=== PATIENT | female | born 1995 | race Caucasian/White ===

== ENCOUNTER 2016-03-23 14:40 | Outpatient (CLI) | payer MEDICAID ==
[~2016-03-23] VITALS: Ht 162.6 cm; Wt 66.7 kg
[~2016-03-23 14:40] MED LIST: ACHD5005 PO; ACHYD1T PO; CEPH-507 PO; DCS100C PO; DEPO INJ; FERR27TA; IBP600T1 PO; IBP800T PO; NITR100C44 PO; ONDA-43 PO; PHEN200T27 PO; PRED20TA PO; PREN1TAB39
[2016-03-23] MEDS ORDERED: PREN-53 PO (15:09)
[2016-03-23 15:10] VITALS: BP 111/68
[2016-03-23] MEDS ORDERED: CITRIC ACID/SOB CIT (BICITRA) 30 ML UDC PO ONE (15:45)
[2016-03-23] MEDS ORDERED: FLU TRIvalent (5 YOA+) 2016-17 (AFLURIA) 0.5 ML IM ONE (16:15)
[2016-03-23] MEDS ORDERED: FAMO-119 PO (16:27)
--- NOTE | 2016-03-24 08:38 | Physician Query-Final Dx ---
RODRIGUEZ MULTANI 03/24/16 0838: Clinic Account Progress/Dx Physician Query: Please give diagnosis Date of Service Mar 23, 2016 at 14:40 MALIK DEE MD 03/24/16 1225: Clinic Account Progress/Dx DIAGNOSIS: Diagnosis false labor RODRIGUEZ MULTANI Mar 24, 2016 08:38 MALIK DEE MD Mar 24, 2016 12:25
== END 2016-03-23 16:45 | disposition home or self-care (01) ==
LOC: WSo 14:40 → LDRP 14:40 → WSo 16:45
PROVIDERS: ATTEND Obstetrics & Gynecology
DX: O47.03 False labor before 37 completed weeks of gestation, third trimester (principal); Z3A.33 33 weeks gestation of pregnancy
CPT/HCPCS: 99214

== ENCOUNTER 2016-04-15 13:36 | Observation (INO) | payer MEDICAID ==
[~2016-04-15] VITALS: Ht 160 cm; Wt 67.1 kg
[~2016-04-15 13:36] MED LIST changes: +FAMO-119 PO; +PREN-53 PO
[2016-04-15 13:57] VITALS: BP 116/73
[2016-04-15 14:51] LABS: BILIRUBIN,URINE NEGATIVE (NEGATIVE); KETONES,URINE NEGATIVE (NEGATIVE); LEUKOCYTE ESTERASE ,URINE 3+ (NEGATIVE); NITRITE,URINE NEGATIVE (NEGATIVE); PH,URINE 7 (5-9); PROTEIN,URINE NEGATIVE (NEGATIVE); UROBILINOGEN,URINE NORMAL (NORMAL)
[2016-04-15] MEDS ORDERED: fluCOnazole (DIFLUCAN) 100 MG TAB PO SCH (16:30)
--- NOTE | 2016-04-15 17:06 | History & Physical ---
History and Physical this patient is a 28-year-old A1 white female with an EDC of 2 7 putting her 37 weeks gestation. She was lying on her bed last evening at about 2301 child who was playing on the bed fell on her abdomen. She began having lower abdominal pain that she rated at 8 out of 10 at the time of presentation. She denies rupture membranes or bleeding. She indicates that the pain is somewhat episodic but at times almost constant. She has no history of labor or delivery. She indicates that she feels the baby was moving less after the impact than it had before. She has been observed here now on labor and delivery for several hours and found be having fairly regular contractions and uterine irritability. Allergies are none Occasions are vitamins Past medical history, past surgical history, obstetric history, family history, and social histories are per the antepartum record HEENT exam is normal Neck is supple no lymphadenopathy no thyromegaly Abdomen is gravid soft and minimally tender primarily in the suprapubic pubis and in the bilateral lower quadrants. No guarding rebound or rigidity. Extremities show no clubbing or cyanosis. There is no Homans sign. Pelvic exam is deferred monitor shows persistent but somewhat irregular contractions and very notable uterine irritability. The heart rate pattern is normal with frequent accelerations no decelerations Assessment and plan 34 week with labor/ contractions in a patient that has a pierced I dramatic event of the abdomen. It would be concern for the increased potential for placental abruption. With her contractions there is concern for labor. Plan is to continue observation through the night with continued monitoring. IV access will be established. As there is nothing particularly ominous at the moment she will be allowed to eat.. Primarily bedrest with bathroom privileges. Patient will be reevaluated in the morning labor at 34 weeks gestation Allergies and Home Medications Allergies Uncoded Allergies: BEETS (Adverse Reaction, Mild, RASH, 07/07/12) Home Medications [id number]/Iron Fumarate/FA/Dss 1 Each Tablet 1 EACH PO (Reported) MALIK DEE MD Apr 15, 2016 17:06
[2016-04-15] MEDS ORDERED: CATHETER FLUSH 10 ML SYR IV PRN (17:15)
[2016-04-15] MEDS: D5 LR IV SOLUTION 1,000 ML IV SCH (17:37)
[2016-04-15 17:44] LABS: BASOPHILS % (AUTO) 0 % (0-10); EOSINOPHILS # (AUTO) 0.1 10^3/uL (0.0-0.3); EOSINOPHILS % (AUTO) 1 % (0-10); LYMPHOCYTES # (AUTO) 2.2 X 10^3 (1.0-4.0); LYMPHOCYTES % (AUTO) 18 % (12-44); MEAN CORPUSCULAR HEMOGLOBIN 31 PG (25-34); MEAN CORPUSCULAR HGB CONC 34 G/DL (32-36); MEAN CORPUSCULAR VOLUME 90 FL (80-99); MEAN PLATELET VOLUME 12.2 FL (7.4-10.4); MONOCYTES # (AUTO) 0.7 X 10^3 (0.0-1.0); MONOCYTES % (AUTO) 6 % (0-12); NEUTROPHILS # (AUTO) 8.7 X 10^3 (1.8-7.8); NEUTROPHILS % (AUTO) 75 % (42-75); PLATELET COUNT 134 10^3/uL (130-400); RED BLOOD COUNT 3.35 10^6/uL (4.35-5.85); RED CELL DISTRIBUTION WIDTH 13.9 % (10.0-14.5); WHITE BLOOD COUNT 11.7 10^3/uL (4.3-11.0)
[2016-04-15] MEDS ORDERED: FLU TRIvalent (5 YOA+) 2016-17 (AFLURIA) 0.5 ML IM ONE (18:30)
[2016-04-15 21:00] VITALS: BP 113/71
[2016-04-16 01:00] VITALS: BP 106/62
[2016-04-16 04:11] VITALS: BP 90/52
[2016-04-16] MEDS: D5 LR IV SOLUTION 1,000 ML IV SCH (06:57)
--- NOTE | 2016-04-16 07:50 | Progress Note-Standard ---
Standard Progress Note Progress Notes/Assess & Plan Progress/Assessment & Plan patient is without complaint. She feels only an occasional contraction. She denies rupture membranes or bleeding. Her pain has essentially resolved. He does feel baby moving. She denies chest pain, denies shortness of breath, denies nausea vomiting, denies headache. Vital Signs Date Time Temp Pulse Resp B/P Pulse Ox O2 Delivery O2 Flow Rate FiO2 04/16/16 04:11 97.6 82 18 90/52 Room Air 04/16/16 01:00 97.6 80 18 106/62 Room Air 04/15/16 21:00 98.0 85 18 113/71 Room Air 04/15/16 13:57 97.1 86 18 116/73 Room Air Vital signs are stable. Patient is afebrile. Laboratory Tests Test 04/15/16 14:00 04/15/16 17:35 Range/Units Urine Bacteria TRACE /HPF Urine Bilirubin NEGATIVE NEGATIVE Urine Casts NONE /LPF Urine Clarity CLEAR Urine Color YELLOW Urine Crystals NONE /LPF Urine Culture Indicated NO Urine Glucose (UA) NEGATIVE NEGATIVE Urine Ketones NEGATIVE NEGATIVE Urine Leukocyte Esterase 3+ H NEGATIVE Urine Mucus NEGATIVE /LPF Urine Nitrite NEGATIVE NEGATIVE Urine Protein NEGATIVE NEGATIVE Urine RBC NONE /HPF Urine RBC (Auto) NEGATIVE NEGATIVE Urine Specific Randolph 1.005 L 1.016-1.022 Urine Squamous Epithelial Cells 5-10 /HPF Urine Urobilinogen NORMAL NORMAL MG/DL Urine WBC 2-5 /HPF Urine pH 7 5-9 Basophils # (Auto) 0.0 0.0-0.1 10^3/uL Basophils (%) (Auto) 0 0-10 % Eosinophils # (Auto) 0.1 0.0-0.3 10^3/uL Eosinophils (%) (Auto) 1 0-10 % Hematocrit 30 L 35-52 % Hemoglobin 10.3 L 11.5-16.0 G/DL Lymphocytes # (Auto) 2.2 1.0-4.0 X 10^3 Lymphocytes (%) (Auto) 18 12-44 % Mean Corpuscular Hemoglobin 31 25-34 PG Mean Corpuscular Hemoglobin Concent 34 32-36 G/DL Mean Corpuscular Volume 90 80-99 FL Mean Platelet Volume 12.2 H 7.4-10.4 FL Monocytes # (Auto) 0.7 0.0-1.0 X 10^3 Monocytes (%) (Auto) 6 0-12 % Neutrophils # (Auto) 8.7 H 1.8-7.8 X 10^3 Neutrophils (%) (Auto) 75 42-75 % Platelet Count 134 130-400 10^3/uL Red Blood Count 3.35 L 4.35-5.85 10^6/uL Red Cell Distribution Width 13.9 10.0-14.5 % White Blood Count 11.7 H 4.3-11.0 10^3/uL fundus is firm nontender. Extremities do not show clubbing cyanosis. There is no Homans sign. pelvic exam per nurse shows a cervix that has not had any change since admission Assessment and plan 34 weeks gestation with labor now resolved. Plan is for discharge home with follow-up in clinic Final Diagnosis labor at 34 weeks gestation MALIK DEE MD Apr 16, 2016 7:50 am
[2016-04-16] MEDS ORDERED: FLUC100T6 PO (07:52)
--- NOTE | 2016-04-16 07:53 | Discharge Instructions ---
Discharge Instructions Discharge Medications New, Converted or Re-Newed RX: RX on Chart Patient Instructions Patient Instructions: as directed Return to The Hospital For: as directed Activity & Diet Discharge Diet: No Restrictions Activity as Tolerated: Yes Orders-Post D/C & Referrals return to clinic as scheduled Return promptly for any signs symptoms or indications of labor MALIK DEE MD Apr 16, 2016 7:53 am
[2016-04-16 09:00] VITALS: BP 110/69
[2016-04-16] MEDS ORDERED: D5 LR IV SOLUTION 1,000 ML IV SCH (12:02)
[2016-04-16] MEDS ORDERED: OXYTOCIN/NORMAL SALINE 500 ML IV SCH (12:05)
[2016-04-16] MEDS ORDERED: D5 LR IV SOLUTION 1,000 ML IV ONE (12:13)
[2016-04-16] MEDS ORDERED: metroNIDAZOLE 500MG/100ML IVPB 100 ML IV NR (12:15)
[2016-04-16] MEDS ORDERED: MEPERIDINE (DEMEROL) INJ 100 MG/ML IM PRN (12:15)
[2016-04-16] MEDS ORDERED: oxyCODONE/APAP 10/325MG (PERCOCET 10) TABLET PO PRN (12:15)
[2016-04-16] MEDS ORDERED: MEASLES,MUMPS,RUBELLA 1 EA INJ SC ONE (12:15)
[2016-04-16] MEDS ORDERED: TETANUS,DIPTH,PERTUSS P/F (BOOSTRIX) 0.5 ML VIAL IM ONE (12:15)
[2016-04-16] MEDS ORDERED: KETOROLAC 30 MG/ML VIAL IVP SCH (12:15)
[2016-04-16] MEDS ORDERED: PROMETHAZINE INJ 25 MG/ML (PHENERGAN) AMP IM PRN (12:15)
[2016-04-16] MEDS ORDERED: ceFAZolin 2 GM/50 ML NS 50 ML IV NR (12:30)
[2016-04-16] MEDS ORDERED: DOCUSATE SODIUM 100 MG (COLACE) CAP PO SCH (21:00)
[2016-04-17] MEDS ORDERED: IBUPROFEN 800 MG (MOTRIN) TAB PO SCH (12:15)
== END 2016-04-16 07:52 | disposition home or self-care (01) ==
LOC: WSo 13:36 → LDRP 13:36 → WSo 13:45 → UNDOADMOB 17:06 → LDRP 17:06 → WSo 17:06 → UNDODISOB 04-16 09:30
PROVIDERS: ADMIT Obstetrics & Gynecology; ATTEND Obstetrics & Gynecology
DX: O60.03 Preterm labor without delivery, third trimester (principal); Z3A.34 34 weeks gestation of pregnancy
CPT/HCPCS: 36415; 81000; 85025; 87210; 96360; 96361; 99211; G0378

== ENCOUNTER 2016-04-23 07:09 | Inpatient (IN) | payer MEDICAID ==
[2016-04-23] VITALS (50 sets, daily range): BP systolic 94–142; BP diastolic 51–80
[~2016-04-23] VITALS: Ht 161.3 cm; Wt 66.7 kg
[~2016-04-23 07:09] MED LIST changes: +FLUC100T6 PO
[2016-04-23] MEDS ORDERED: OXYTOCIN/NORMAL SALINE 500 ML IV SCH ×2 (07:47→07:49)
--- NOTE | 2016-04-23 07:54 | History & Physical ---
History and Physical this patient is a 20-year-old white female with an EDC of 2 7 who was seen in clinic yesterday for complaint of pressure and pain and shortness of breath. He has been followed for progressive polyhydramnios since 34 weeks gestation. BILL yesterday was 260. She was having fairly significant uterine elevator bili with occasional contraction. She denies ruptured membranes or bleeding. 's history is also significant for low platelet count. She is admitted now for labor induction secondary to her polyhydramnios. GBS culture done on April 13 of this year was negative. Allergies are none Medications are vitamins S medical history, past surgical history, obstetric history, family history, and social histories are per the antepartum record HEENT exam is normal Neck is supple no lymphadenopathy no thyromegaly Abdomen is gravid soft nontender nondistended. Fundal height is significantly greater than gestational age Extremities show no clubbing cyanosis. There is no Homans sign. pelvic exam reveals a cervix 370 a dilated relatively thick -1 station soft and mid to anterior. This equates to a Hunt score of 7 or 8 assessment and plan term at 37-5/7 weeks' gestation with significant polyhydramnios. Patient is admitted now for induction of labor. Anticipation is for vaginal delivery. 37-5/7 weeks' gestation with severe polyhydramnios Allergies and Home Medications Allergies Uncoded Allergies: BEETS (Adverse Reaction, Mild, RASH, 07/07/12) Home Medications Fluconazole 100 Mg Tablet #3 200 MG PO Q48H Prescribed by: MALIK RUIZ on 04/16/16 0752 [id number]/Iron Fumarate/FA/Dss 1 Each Tablet 1 EACH PO (Reported) MALIK DEE MD Apr 23, 2016 7:54 am
[2016-04-23] MEDS ORDERED: KETOROLAC 30 MG/ML VIAL IV SCH (08:00)
[2016-04-23] MEDS ORDERED: TETANUS,DIPTH,PERTUSS P/F (BOOSTRIX) 0.5 ML VIAL IM ONE (08:00)
[2016-04-23] MEDS ORDERED: MEASLES,MUMPS,RUBELLA 1 EA INJ SC ONE (08:00)
[2016-04-23] MEDS ORDERED: BENZOCAINE/MENTHOL (DERMOPLAST) 56 ML CAN TP PRN (08:00)
[2016-04-23 08:06] LABS: BASOPHILS % (AUTO) 0 % (0-10); EOSINOPHILS # (AUTO) 0.1 10^3/uL (0.0-0.3); EOSINOPHILS % (AUTO) 1 % (0-10); LYMPHOCYTES # (AUTO) 3.1 X 10^3 (1.0-4.0); LYMPHOCYTES % (AUTO) 25 % (12-44); MEAN CORPUSCULAR HEMOGLOBIN 30 PG (25-34); MEAN CORPUSCULAR HGB CONC 34 G/DL (32-36); MEAN CORPUSCULAR VOLUME 89 FL (80-99); MEAN PLATELET VOLUME 12.2 FL (7.4-10.4); MONOCYTES # (AUTO) 1.1 X 10^3 (0.0-1.0); MONOCYTES % (AUTO) 9 % (0-12); NEUTROPHILS # (AUTO) 8.2 X 10^3 (1.8-7.8); NEUTROPHILS % (AUTO) 65 % (42-75); PLATELET COUNT 138 10^3/uL (130-400); RED BLOOD COUNT 3.49 10^6/uL (4.35-5.85); RED CELL DISTRIBUTION WIDTH 13.7 % (10.0-14.5); WHITE BLOOD COUNT 12.6 10^3/uL (4.3-11.0)
[2016-04-23] MEDS: D5 LR IV SOLUTION 1,000 ML IV SCH ×2 (08:30→15:02)
[2016-04-23] MEDS ORDERED: SUFENTA 0.6MCG/ML BUPIVA 0.125 100 ML ONE (09:36)
[2016-04-23] MEDS: EPIDURAL (SUFENTA 0.6MCG/ML BUPIVA 0.125%) 100 ML BAG EPI SCH ×2 (09:36→16:20)
[2016-04-23] MEDS ORDERED: LACTATED RINGERS 1,000 ML IV SCH (10:01)
[2016-04-23] MEDS ORDERED: ONDANSETRON 4 MG/2 ML (SDV) Z0FRAN IV PRN ×2 (10:15→18:15)
[2016-04-23] MEDS ORDERED: METOCLOPRAMIDE INJ 10 MG/2 ML (REGLAN) IV PRN (10:15)
[2016-04-23] MEDS ORDERED: diphenhydrAMINE 50 MG/ML INJ (BENADRYL) IV PRN (10:15)
[2016-04-23] MEDS ORDERED: NALOXONE 0.4 MG/ML 1 ML (NARCAN) VIAL IV PRN ×2 (10:15)
[2016-04-23] MEDS ORDERED: LIDOCAINE/EPI 1%-1:200,000 (XYLOCAINE) 30 ML VIAL ONE (17:03)
[2016-04-23] MEDS ORDERED: FLU TRIvalent (5 YOA+) 2016-17 (AFLURIA) 0.5 ML IM ONE (20:30)
[2016-04-23] MEDS: DOCUSATE SODIUM 100 MG (COLACE) CAP PO SCH (21:40)
[2016-04-24] MEDS: IBUPROFEN 800 MG (MOTRIN) TAB PO SCH ×4 (01:40→18:26)
[2016-04-24 06:45] VITALS: BP 105/64
[2016-04-24] MEDS ORDERED: IBUPROFEN 800 MG (MOTRIN) TAB PO SCH (08:00)
[2016-04-24 08:30] VITALS: BP 107/72
[2016-04-24] MEDS ORDERED: OXYC-465 PO (09:52)
[2016-04-24] MEDS ORDERED: DOCU100C37 PO (09:52)
[2016-04-24] MEDS ORDERED: IBUP-1780 PO (09:52)
--- NOTE | 2016-04-24 09:54 | Discharge Instructions ---
Discharge Instructions Discharge Medications New, Converted or Re-Newed RX: RX on Chart Patient Instructions Patient Instructions: as directed Return to The Hospital For: as directed Activity & Diet Discharge Diet: No Restrictions Activity as Tolerated: No Orders-Post D/C & Referrals Follow Up Appt: Call to make follow up appt. for patient in 4 weeks. Activity Per routine post vaginal delivery instructions. Please call in RX to patient pharmacy. Diet as tolerated Patient may shower or tub bathe as desired. MALIK DEE MD Apr 24, 2016 9:53 am
--- NOTE | 2016-04-24 09:55 | Progress Note-Standard ---
Standard Progress Note Progress Notes/Assess & Plan Progress/Assessment & Plan this patient is without complaint. She is ambulating, voiding, tolerating by mouth well, denies chest pain, denies shortness of breath, denies headache, has good pain control. Vital Signs Date Time Temp Pulse Resp B/P Pulse Ox O2 Delivery O2 Flow Rate FiO2 04/24/16 08:30 97.1 70 20 107/72 Room Air 04/24/16 06:45 97.0 73 18 105/64 Room Air 04/23/16 23:40 96.1 73 18 103/57 Room Air 04/23/16 19:25 72 18 107/60 Room Air 04/23/16 18:48 96.8 67 20 100/59 Room Air 04/23/16 18:20 68 20 109/57 Room Air 04/23/16 18:05 75 20 108/58 Room Air 04/23/16 17:55 98.4 80 18 123/59 Room Air 04/23/16 17:40 78 20 115/55 Room Air 04/23/16 17:15 91 20 115/57 100 Room Air 04/23/16 17:10 92 20 103/57 100 Room Air 04/23/16 17:00 98.0 76 20 120/70 100 Room Air 04/23/16 16:55 76 20 120/75 100 Room Air 04/23/16 16:50 73 20 113/70 100 Room Air 04/23/16 16:45 73 20 113/70 100 Room Air 04/23/16 16:30 73 20 113/70 100 Room Air 04/23/16 16:15 98.3 75 20 108/66 99 Room Air 04/23/16 16:00 72 20 109/70 99 Room Air 04/23/16 15:45 75 20 112/71 100 Room Air 04/23/16 15:30 74 20 108/65 99 Room Air 04/23/16 15:15 77 20 105/63 99 Room Air 04/23/16 15:00 71 20 109/70 98 Room Air 04/23/16 14:44 81 20 113/71 100 Room Air 04/23/16 14:30 97.4 78 20 106/70 97 Room Air 04/23/16 14:15 75 20 106/70 97 Room Air 04/23/16 14:00 130 20 119/79 99 Room Air 04/23/16 13:45 98.0 72 20 107/63 99 Room Air 04/23/16 13:30 74 20 107/63 100 Room Air 04/23/16 13:18 98.3 72 20 99/56 100 Room Air 04/23/16 13:00 98.3 86 18 95/51 98 Room Air 04/23/16 12:40 80 18 94/53 98 Room Air 04/23/16 12:30 85 18 101/61 99 Room Air 04/23/16 12:15 80 18 103/63 100 Room Air 04/23/16 12:00 97.0 78 18 106/74 98 Room Air 04/23/16 11:45 97.0 78 18 106/74 98 Room Air 04/23/16 10:45 86 20 105/69 93 Room Air 04/23/16 10:30 96.6 85 20 108/58 100 Room Air 04/23/16 10:15 103 20 121/68 100 Room Air 04/23/16 10:10 85 20 125/70 100 Room Air 04/23/16 10:05 107 20 107/61 100 Room Air 04/23/16 09:57 96 20 133/76 100 Room Air I & O 04/24/16 07:00 Intake Total 1500 ml Balance 1500 ml Vital signs are stable. Patient afebrile. Fundus is firm below the umbilicus and nontender. Extremities show no clubbing cyanosis. There is no Homans sign. Assessment and plan day number 1 status post term spontaneous vaginal delivery doing well. Plan is for observation and convalescence care today and discharge home tomorrow. If patient elects discharge home today and that will be allowed Final Diagnosis 37-5/7 weeks gestation term spontaneous vaginal delivery MALIK DEE MD Apr 24, 2016 9:55 am
[2016-04-24 11:44] VITALS: BP 98/71
[2016-04-24] MEDS ORDERED: FLU TRIvalent (5 YOA+) 2016-17 (AFLURIA) 0.5 ML IM ONE (15:11)
[2016-04-24] MEDS ORDERED: TETANUS,DIPTH,PERTUSS P/F (BOOSTRIX) 0.5 ML VIAL IM ONE ×2 (15:13→15:30)
[2016-04-24 15:40] VITALS: BP 104/65
--- NOTE | 2016-04-24 16:02 | Anesthesia-Regional Post-Op ---
Regional Patient Condition Mental Status: Alert, Oriented x3 Circulation: Same as Pre-Op Headache: Absent Sensation: Full Recovery Motor Block: Absent Post Op Complications Complications None Follow Up Care/Instructions Patient Instructions None needed. Anesthesia/Patient Condition Patient is doing well, no complaints, stable vital signs, no apparent adverse anesthesia problems. No complications reported per nursing. ASHWINI HERNANDEZ CRNA Apr 24, 2016 16:02
[2016-04-24 20:45] VITALS: BP 105/65
[2016-04-24] MEDS: DOCUSATE SODIUM 100 MG (COLACE) CAP PO SCH (20:45)
[2016-04-24] MEDS: oxyCODONE/APAP 10/325MG (PERCOCET 10) TABLET PO PRN (20:45)
[2016-04-25] MEDS: IBUPROFEN 800 MG (MOTRIN) TAB PO SCH ×3 (00:52→12:02)
[2016-04-25 00:55] VITALS: BP 101/61
[2016-04-25 07:45] VITALS: BP 92/61
[2016-04-25] MEDS: oxyCODONE/APAP 10/325MG (PERCOCET 10) TABLET PO PRN (08:21)
[2016-04-25] MEDS: DOCUSATE SODIUM 100 MG (COLACE) CAP PO SCH (08:22)
--- NOTE | 2016-04-25 09:33 | Progress Note-Standard ---
Standard Progress Note Progress Notes/Assess & Plan Progress/Assessment & Plan this patient is without complaint. She is ambulating, voiding, tolerating by mouth well, denies chest pain, denies shortness of breath, denies headache, has good pain control. Vital Signs Date Time Temp Pulse Resp B/P Pulse Ox O2 Delivery O2 Flow Rate FiO2 04/24/16 08:30 97.1 70 20 107/72 Room Air 04/24/16 06:45 97.0 73 18 105/64 Room Air 04/23/16 23:40 96.1 73 18 103/57 Room Air 04/23/16 19:25 72 18 107/60 Room Air 04/23/16 18:48 96.8 67 20 100/59 Room Air 04/23/16 18:20 68 20 109/57 Room Air 04/23/16 18:05 75 20 108/58 Room Air 04/23/16 17:55 98.4 80 18 123/59 Room Air 04/23/16 17:40 78 20 115/55 Room Air 04/23/16 17:15 91 20 115/57 100 Room Air 04/23/16 17:10 92 20 103/57 100 Room Air 04/23/16 17:00 98.0 76 20 120/70 100 Room Air 04/23/16 16:55 76 20 120/75 100 Room Air 04/23/16 16:50 73 20 113/70 100 Room Air 04/23/16 16:45 73 20 113/70 100 Room Air 04/23/16 16:30 73 20 113/70 100 Room Air 04/23/16 16:15 98.3 75 20 108/66 99 Room Air 04/23/16 16:00 72 20 109/70 99 Room Air 04/23/16 15:45 75 20 112/71 100 Room Air 04/23/16 15:30 74 20 108/65 99 Room Air 04/23/16 15:15 77 20 105/63 99 Room Air 04/23/16 15:00 71 20 109/70 98 Room Air 04/23/16 14:44 81 20 113/71 100 Room Air 04/23/16 14:30 97.4 78 20 106/70 97 Room Air 04/23/16 14:15 75 20 106/70 97 Room Air 04/23/16 14:00 130 20 119/79 99 Room Air 04/23/16 13:45 98.0 72 20 107/63 99 Room Air 04/23/16 13:30 74 20 107/63 100 Room Air 04/23/16 13:18 98.3 72 20 99/56 100 Room Air 04/23/16 13:00 98.3 86 18 95/51 98 Room Air 04/23/16 12:40 80 18 94/53 98 Room Air 04/23/16 12:30 85 18 101/61 99 Room Air 04/23/16 12:15 80 18 103/63 100 Room Air 04/23/16 12:00 97.0 78 18 106/74 98 Room Air 04/23/16 11:45 97.0 78 18 106/74 98 Room Air 04/23/16 10:45 86 20 105/69 93 Room Air 04/23/16 10:30 96.6 85 20 108/58 100 Room Air 04/23/16 10:15 103 20 121/68 100 Room Air 04/23/16 10:10 85 20 125/70 100 Room Air 04/23/16 10:05 107 20 107/61 100 Room Air 04/23/16 09:57 96 20 133/76 100 Room Air I & O 04/24/16 07:00 Intake Total 1500 ml Balance 1500 ml Vital signs are stable. Patient afebrile. Fundus is firm below the umbilicus and nontender. Extremities show no clubbing cyanosis. There is no Homans sign. Assessment and plan day number 1 status post term spontaneous vaginal delivery doing well. Plan is for observation and convalescence care today and discharge home tomorrow. If patient elects discharge home today and that will be allowed April 25, 2016 Patient is without complaint. She is ambulating, voiding, tolerating fairly well, is requesting discharge home. Vital Signs Date Time Temp Pulse Resp B/P Pulse Ox O2 Delivery O2 Flow Rate FiO2 04/25/16 07:45 96.0 75 20 92/61 100 Room Air 04/25/16 00:55 98.1 71 18 101/61 98 Room Air 04/24/16 20:45 98.4 79 18 105/65 99 Room Air 04/24/16 15:40 97.9 76 20 104/65 100 Room Air 04/24/16 11:44 97.4 78 20 98/71 100 Room Air vital signs are stable. Patient is afebrile. Fundus is firm below the umbilicus and nontender. Extremities show clubbing cyanosis. There is no Homans sign. There is some pretibial pitting edema that is normal. Assessment and plan day number 2 status post term spontaneous vaginal delivery at 37 weeks and 5 days. Patient is ready for discharge home. Final Diagnosis 37-5/7 weeks gestation spontaneous vaginal delivery MALIK DEE MD Apr 25, 2016 9:33 am
[2016-04-25 13:05] VITALS: BP 92/61
--- NOTE | 2016-04-26 11:04 | PROCEDURE REPORT ---
PROCEDURE PHYSICIAN: MALIK DEE DATE OF PROCEDURE: 04/23/2016 DATE OF DICTATION: 04/23/2016 DELIVERY NOTE: The patient delivered by term spontaneous vaginal delivery of a viable female with Apgars of 9 and 9 at 1 to 5 minutes respectfully. time was 1726. Weight is pending. The infant was delivered over an intact perineum under epidural analgesia. There was a nuchal cord x1 that was easily released. The infant was bulb suctioned on delivery of the head and again on completion of the delivery. The cord was doubly clamped, father cut the cord and baby was passed to mom's abdomen. Cord bloods were obtained secondary to patient's history of polyhydramnios and 2 repetitive decelerations prior to delivery. Cord blood pH is pending at this time. Cord bloods were obtained as well. The placenta delivered spontaneously Luther. It was normal with a three-vessel cord. These cervix, vagina, rectum and perineum were examined and found intact. Estimated blood loss for the delivery was around 100 mL. Sponge and needle counts were correct on completion of delivery. The patient remained in the LDR for recovery. The baby remained with the mom. Job ID: [id number] Dictated Date: 04/23/2016 17:32:16 Knitted Garment Finisher Date: 04/26/2016 11:01:10 / micheal
== END 2016-04-25 13:05 | disposition home or self-care (01) | DRG 775 ==
LOC: LDRP 07:09
PROVIDERS: ADMIT Obstetrics & Gynecology; ATTEND Obstetrics & Gynecology
PROC: 10E0XZZ Delivery of Products of Conception, External Approach (ICD-10-PCS; principal; 2016-04-23)
PROC: 3E033VJ Introduction of Other Hormone into Peripheral Vein, Percutaneous Approach (ICD-10-PCS; 2016-04-23)
DX: O40.3XX0 Polyhydramnios, third trimester, not applicable or unspecified (principal); O69.81X0 Labor and delivery complicated by cord around neck, without compression, not applicable or unspecified; Z3A.37 37 weeks gestation of pregnancy; Z37.0 Single live birth; Z23 Encounter for immunization
CPT/HCPCS: 36415; 85025; 88307; 90715

== ENCOUNTER 2018-03-30 17:20 | Outpatient (CLI) | payer MEDICAID ==
[~2018-03-30] VITALS: Ht 161.3 cm; Wt 66.2 kg
[~2018-03-30 17:20] MED LIST changes: +DOCU100C37 PO; +IBUP-1780 PO; +OXYC-465 PO
--- NOTE | 2018-03-30 17:20 | NUR ---
HELEN KAMARA presented to unit via ambulation from ED, accompanied by , with c/o N/V. HELEN KAMARA weighed, gowned, voided, and to bed. EFHM and TOCO applied, VS taken. HELEN KAMARA oriented to bed controls, call light, TV, heat, and A/C controls.
[2018-03-30 17:30] VITALS: BP 109/66
--- NOTE | 2018-03-30 17:30 | NUR ---
PT REPORTS NAUSEA/VOMITING ALL DAY, PT NOTES SHE HAS TAKEN ZOFRAN DAILY THROUGHOUT HER AND RAN OUT OF MEDS TODAY, AFTER CALLING THE OFFICE FOR A REFILL, [facility] HADN'T GOTTEN THE PRESCRIPTION FILLED WHICH IS WHAT BROUGHT THE PT TO THE HOSPITAL TODAY. PT REPORTS HER CELL PHONE NOTIFIED HER OF HER PRESCRIPTION BEING READY SOON SHE ARRIVED TO HOSPITAL. PT DENIES CONTRACTIONS, VAGINAL BLEEDING OR LEAKING OF FLUID, INITIAL ASSESSMENT COMPLETED, VSS, PT VERBALIZES UNDERSTANDING OF PLAN OF CARE.
--- NOTE | 2018-03-30 17:35 | NUR ---
DR DEE CALLED NEW ORDERS RECEIVED. REVIEWED PLAN OF CARE WITH PT, PT DENIES QUESTIONS OR CONCERNS.
[2018-03-30] MEDS ORDERED: LACTATED RINGERS 1,000 ML IV SCH (17:45)
[2018-03-30] MEDS ORDERED: ONDANSETRON 4 MG/2 ML (SDV) Z0FRAN IVP ONE (17:45)
[2018-03-30 18:03] VITALS: BP 103/66
[2018-03-30 18:17] VITALS: BP 109/66
--- NOTE | 2018-03-30 18:19 | NUR ---
EFM AND TOCO DISCONTINUED AFTER REACTIVE NST.
--- NOTE | 2018-03-30 19:19 | NUR ---
Arrived in room to meet pt and pt states that she is still cramping. Pt IV complete and pt assisted up to BR to void. Pt denies nausea and is wanting to eat for the first time this day. Pt sitting up and eating at this time.
[2018-03-30 19:57] VITALS: BP 100/56
--- NOTE | 2018-03-30 20:04 | NUR ---
Pt feeling better and ready to go home. IV discontinued and pt educated medication ( zofran). Pt SO present and ambulated to private vehicle with pt.
[2018-03-30 20:11] VITALS: BP 100/56
--- NOTE | 2018-04-03 15:56 | Physician Query-Final Dx ---
ANNETTE LEE 04/03/18 1556: Clinic Account Progress/Dx Physician Query: Please give diagnosis Date of Service Mar 30, 2018 at 17:20 MALIK DEE MD 04/04/18 0756: Clinic Account Progress/Dx DIAGNOSIS: Diagnosis Hyperemesis gravidarum ANNETTE LEE Apr 03, 2018 15:56 MALIK DEE MD Apr 04, 2018 07:56
== END 2018-03-30 20:04 | disposition home or self-care (01) ==
LOC: WSo 17:20 → LDRP 17:20 → WSo 20:04
PROVIDERS: ATTEND Obstetrics & Gynecology
DX: O21.0 Mild hyperemesis gravidarum (principal)
CPT/HCPCS: 96361; 96374; 99213

== ENCOUNTER 2018-05-31 07:00 | Inpatient (IN) | payer MEDICAID ==
[2018-05-31] VITALS (52 sets, daily range): BP systolic 89–132; BP diastolic 51–81
[~2018-05-31] VITALS: Ht 165.1 cm; Wt 70.8 kg
--- NOTE | 2018-05-31 07:10 | NUR ---
HELEN KAMARA presented to unit via AMBULATORY, accompanied by SO, FOR INDUCTION OF LABOR. HELEN KAMARA weighed, gowned, voided, and to bed. EFHM and TOCO applied, VS taken. HELEN KAMARA oriented to bed controls, call light, TV, heat, and A/C controls.
[2018-05-31] MEDS ORDERED: OXYTOCIN/NORMAL SALINE 500 ML IV SCH ×2 (07:28→17:50)
--- NOTE | 2018-05-31 07:30 | NUR ---
THIS RN INTRODUCES SELF TO PT AND SO AT THIS TIME. DISCUSSED PLAN OF CARE. QUESTIONS ANSWERED. CALL LIGHT WITHIN REACH.
--- NOTE | 2018-05-31 07:45 | NUR ---
dr dillon at bedside with this rn. SHELBY and AROM by dr dillon. questions answered. call light within reach.
[2018-05-31] MEDS: D5 LR IV SOLUTION 1,000 ML IV SCH ×2 (07:59→12:06)
[2018-05-31 08:02] LABS: BASOPHILS % (AUTO) 0 % (0-10); EOSINOPHILS # (AUTO) 0.1 10^3/uL (0.0-0.3); EOSINOPHILS % (AUTO) 1 % (0-10); HEMATOCRIT 31 % (35-52); HEMOGLOBIN 10.6 G/DL (11.5-16.0); LYMPHOCYTES % (AUTO) 27 % (12-44); MEAN CORPUSCULAR HEMOGLOBIN 30 PG (25-34); MEAN CORPUSCULAR HGB CONC 34 G/DL (32-36); MEAN CORPUSCULAR VOLUME 88 FL (80-99); MEAN PLATELET VOLUME 12.7 FL (7.4-10.4); MONOCYTES # (AUTO) 1.1 X 10^3 (0.0-1.0); MONOCYTES % (AUTO) 10 % (0-12); NEUTROPHILS # (AUTO) 6.8 X 10^3 (1.8-7.8); NEUTROPHILS % (AUTO) 61 % (42-75); PLATELET COUNT 154 10^3/uL (130-400); RED CELL DISTRIBUTION WIDTH 13.9 % (10.0-14.5)
[2018-05-31] MEDS ORDERED: SUFENTA 0.6MCG/ML BUPIVA 0.125 100 ML ONE (08:16)
--- NOTE | 2018-05-31 08:16 | History & Physical ---
History and Physical Date Seen by Provider: May 31, 2018 Time Seen by Provider: 08:14 This patient is a 22-year-old white female with an EDC of 2018 presenting for induction of labor at 38-5/7 weeks gestation. She has a history of very rapid labors and delivers rapidly. Her Hunt score is 9 her platelet count is dropping down 146 platelet count has never been normal at the end of . She denies rupture membranes or bleeding. Her GBS culture was negative. Allergies are none Medications are vitamins Medical social and surgical histories are per the antepartum record HEENT exam is normal Neck is supple no lymphadenopathy no thyromegaly Abdomen gravid soft nontender nondistended Extreme show clubbing cyanosis. Homans sign. Pelvic exam shows a cervix 3 similar dilated traversed feel very soft and stretchy with the presenting part at the -1 station vertex presentation and amniotomy is performed with release of clear fluid. Assessment and plan term at 30 5/7 weeks' gestation with a history of rapid labors and with PROM cytopenia. Plan is for admission for labor induction with Pitocin. We anticipate a vaginal delivery 38-5/7 weeks' gestation with thrombocytopenia Allergies and Home Medications Allergies Coded Allergies: beet (Unverified Allergy, Unknown, RASH, 04/23/16) FROM UNCODED ALLERGIES Patient Home Medication List Home Medication List Reviewed: Yes Clinical Quality Measures DVT/VTE Risk/Contraindication: Risk Factor Score Per Nursin RFS Level Per Nursing on Admit: 1=Low/No VTE PPX MALIK DEE MD May 31, 2018 08:16
[2018-05-31] MEDS ORDERED: CATHETER FLUSH 10 ML SYR IV PRN (08:45)
[2018-05-31] MEDS ORDERED: FLU QUADRIvalent (5+ YOA) 2018-2019 (AFLURIA) 0.5 ML IM ONE (08:45)
[2018-05-31] MEDS ORDERED: fentaNYL INJECTION 100 MCG/2 ML AMP ONE (09:07)
[2018-05-31] MEDS ORDERED: LACTATED RINGERS 1,000 ML IV ONE ×2 (09:27)
[2018-05-31] MEDS ORDERED: NALOXONE 0.4 MG/ML 1 ML (NARCAN) VIAL IV PRN (09:30)
[2018-05-31] MEDS ORDERED: ONDANSETRON 4 MG/2 ML (SDV) Z0FRAN IV PRN (09:30)
[2018-05-31] MEDS ORDERED: EPIDURAL (SUFENTA 0.6MCG/ML BUPIVA 0.125%) 100 ML BAG EPI PRN (09:30)
[2018-05-31] MEDS ORDERED: BUPIVACAINE 0.25% 30 ML (SENSORCAINE) VIAL ONE (09:33)
--- NOTE | 2018-05-31 10:30 | NUR ---
dr dillon updated on pt report by this rn. epidural placed and pt comfortable. sve /-2. uc 2-4min. increasing pitocin per protocol. no new orders.
--- NOTE | 2018-05-31 11:10 | NUR ---
dr king updated on pt report. sve no cervical change, uc 2-3.5min. rn increasing pitocin per protocol. no new orders.
--- NOTE | 2018-05-31 13:15 | NUR ---
DR DEE UPDATED ON PT REPORT BY THIS RN. SVE 4.5CM/60/-1, BABY LOWER AND MORE ENGAGED NOW. PITOCIN ON 30 AND CONTINUING TO INCREASE PER PROTOCOL. UC 2-3 WITH POSSIBLE COUPLING. FREQUENT POSITION CHANGES. NO NEW ORDERS. WILL BE TO LD SHORTLY TO SEE PT.
--- NOTE | 2018-05-31 15:10 | NUR ---
1510 SVE BY THIS RN 1512 REPOSITIONED TO RIGHT SIDE 1514 REPOSITIONED TO LEFT SIDE 1516 REPOSITIONED TO SEMI FOWLERS, O2 ON 152 DR DEE CALLED
--- NOTE | 2018-05-31 15:22 | NUR ---
DR DEE CALLED BY THIS RN WITH UPDATED PT REPORT. RN EXPRESSES CONCERN FOR FHT. CURRENT SVE . UC PATTERN. FHT RECURRENT VARIABLES WITH EACH UC. VARIABLES TO 80S. MAY TURN PIT OFF IF RN CONCERNED PER DR DEE. WILL BE UP TO LD FOR EVALUATION/POSSIBLE DELIVERY SHORTLY.
--- NOTE | 2018-05-31 15:25 | NUR ---
DR DEE AT BEDSIDE. FHT STRIP REVIEWED BY DR DEE. PT HAS O2 ON, PITOCIN IS TURNED OFF. DR RYAN . OKAYED FHT STRIP, ORDERS RN TO RESTART PITOCIN RATE AT 14 MILIUNITS/HR. DR WILL REMAIN ON LD UNTIL DELIVERY. DR MONITORING FHT STRIP.
--- NOTE | 2018-05-31 16:20 | NUR ---
1620 DR DEE AT BEDSIDE. SVE 10 CM 1622 ROOM SET UP FOR DELIVERY, TANNER CATHETER DC, 700ML URINE OUT OF CATHETER 1626 BEGIN PUSHING 1631 DELIVERY OF HEAD 1631 SPONTANEOUS VAGINAL DELIVERY OF VIABLE MALE BY DR DEE 1633 CORD CLAMPED AND CUT 1634 SPONTANEOUS DELIVERY OF PLACENTA 1645 RECOVERY PERIOD BEGINS EBL 100 ML NO LACERATION 6#8OZ, 2960G
[2018-05-31] MEDS: KETOROLAC 30 MG/ML VIAL IV SCH (17:59)
[2018-05-31] MEDS ORDERED: KETOROLAC 30 MG/ML VIAL ONE (18:00)
[2018-05-31] MEDS ORDERED: MEASLES,MUMPS,RUBELLA 1 EA INJ SC ONE (18:00)
[2018-05-31] MEDS ORDERED: TETANUS,DIPTH,PERTUSS P/F (BOOSTRIX) 0.5 ML VIAL IM ONE (18:00)
[2018-05-31] MEDS ORDERED: ONDANSETRON 4 MG/2 ML (SDV) Z0FRAN IVP PRN (18:00)
[2018-05-31] MEDS ORDERED: BENZOCAINE/MENTHOL (DERMOPLAST) 56 ML CAN TP PRN (18:00)
--- NOTE | 2018-05-31 18:05 | NUR ---
1645 recovery period begins. pericare by this rn. fundus firm, midline, 2 below umbilicus, light bleeding. pt denies pain or needs at this time. call light within reach. 1700 fundus firm, midline, 2 below umbilicus, light bleeding. pt denies pain or needs at this time. beginning to breastfeed at this time. call light within reach. 1715 fundus firm, midline, 2 below umbilicus, light bleeding. pt denies pain or needs at this time. infant. call light within reach. 1730 fundus firm, midline, 2 below umbilicus, light bleeding. pt denies pain or needs at this time. infant at this time. call light within reach. 1745 fundus firm, midline, 2 below umbilicus, light bleeding. pt denies pain or needs at this time. call light within reach. 1800 fundus firm, midline, 2 below umbilicus, light bleeding. pt denies pain or needs at this time. pericare by this rn. linens changed. call light within reach. pt still unable to lift legs. epidural catheter has already been removed. rn will continue to reevaluate ability to stand for transfer to pp room. mother skin to skin with infant.
--- NOTE | 2018-05-31 20:30 | NUR ---
Pt in stable condition, vs recorded only r/t unchanged monitor settings.
--- NOTE | 2018-05-31 21:03 | OPERATIVE REPORT ---
DATE OF SERVICE: 05/31/2018 DELIVERY NOTE The patient delivered by term spontaneous vaginal delivery a viable male with Apgars of 8 and 9 at 1 and 5 minutes respectively. time of 16:31. Weight is 6 lbs. 8 oz. Cord blood is pending. The infant was delivered over an intact perineum under epidural analgesia with about 5 pushes. The infant was bulb suctioned on delivery of the head and again on completion of delivery. The umbilical cord was doubly clamped, father cut the cord, the baby was passed to mother's abdomen. The baby was quickly pink, moved all extremities, had excellent tone and reflexes and a heart rate well over 100 at the time of delivery. The placenta delivered spontaneously Dennis, fairly promptly after delivery, it was normal with a 3-vessel cord. The cervix, vagina, rectum, perineum were examined and found intact. Estimated blood loss for delivery was less than 100 mL. Sponge and needle counts were correct. The patient remained in the LDR for recovery. The baby remained with mother. Job ID: [id number] DocumentID: [id number] Dictated Date: 05/31/2018 16:44:44 Hr Representative Date: 05/31/2018 21:02:58 Dictated By: MALIK DEE MD MTDD
--- NOTE | 2018-05-31 22:30 | NUR ---
Pt up to bathroom standby no assist needed, pericare pads changed, ambulatory standby to room 310. Pt denies needs, shows no ss distress, oriented to room call system and info packet, needs denied. niraj cont to monitor.
[2018-06-01 00:09] VITALS: BP 112/68
[2018-06-01] MEDS: DOCUSATE SODIUM 100 MG (COLACE) CAP PO SCH ×3 (00:09→21:50)
[2018-06-01] MEDS: KETOROLAC 30 MG/ML VIAL IV SCH ×3 (00:09→20:27)
[2018-06-01] MEDS ORDERED: DOCU100C37 PO (00:43)
[2018-06-01] MEDS ORDERED: IBUP-1780 PO (00:43)
[2018-06-01] MEDS ORDERED: OXYC1TAB87 PO (00:43)
--- NOTE | 2018-06-01 00:44 | Discharge Instructions ---
Discharge Instructions Discharge Medications New, Converted or Re-Newed RX: RX on Chart Patient Instructions Patient Instructions: As directed Return to The Hospital For: As directed Activity & Diet Discharge Diet: No Restrictions Activity as Tolerated: No Orders-Post D/C & Referrals Follow Up Appt: Call to make follow up appt. for patient in 4 weeks. Activity Per routine post vaginal delivery instructions. Please call in RX to patient pharmacy. Diet as tolerated Patient may shower or tub bathe as desired. MALIK DEE MD Jun 01, 2018 00:44
[2018-06-01 06:25] VITALS: BP 97/57
--- NOTE | 2018-06-01 07:59 | Progress Note-Standard ---
Standard Progress Note Progress Notes/Assess & Plan Date Seen by a Provider: Jun 01, 2018 Time Seen by a Provider: 07:58 Progress/Assessment & Plan This patient is without complaint. She is ambulating, voiding, tolerating oral intake well has good pain control. Vital Signs 06/01/18 06:25 Temp 98.4 Pulse 73 Resp 16 B/P (MAP) 97/57 (70) Pulse Ox 99 O2 Delivery Room Air Vital signs are stable. Patient is afebrile. Abdomen is benign. The fundus is firm below the umbilicus and nontender. Extremities show no clubbing cyanosis. There is no Homans sign. Assessment and plan day number 1 status post term spontaneous vaginal delivery doing well. Plan is routine convalescence care Final Diagnosis 37-5/7 weeks spontaneous vaginal delivery MALIK DEE MD Jun 01, 2018 07:59
[2018-06-01 08:47] VITALS: BP 103/62
--- NOTE | 2018-06-01 09:09 | Anesthesia-Regional Post-Op ---
Regional Patient Condition Mental Status: Alert, Oriented x3 Circulation: Same as Pre-Op Headache: Absent Sensation: Full Recovery Motor Block: Absent Post Op Complications Complications None Follow Up Care/Instructions Patient Instructions None needed. Anesthesia/Patient Condition Patient is doing well, no complaints, stable vital signs, no apparent adverse anesthesia problems. No complications reported per nursing. CORNEL VASQUEZ CRNA Jun 01, 2018 09:09
[2018-06-01] MEDS: oxyCODONE/APAP 5/325MG (PERCOCET 5) TABLET PO PRN ×2 (10:28→16:20)
[2018-06-01] MEDS ORDERED: IBUPROFEN 800 MG (MOTRIN) TAB PO ONE (12:19)
[2018-06-01 12:22] VITALS: BP 95/55
[2018-06-01] MEDS: IBUPROFEN 800 MG (MOTRIN) TAB PO SCH ×3 (12:23→23:47)
[2018-06-01 16:18] VITALS: BP 100/61
--- NOTE | 2018-06-01 18:27 | Progress Note-Standard ---
Standard Progress Note Progress Notes/Assess & Plan Date Seen by a Provider: Jun 01, 2018 Time Seen by a Provider: 18:26 Progress/Assessment & Plan This patient is without complaint. She is ambulating, voiding, tolerating oral intake well has good pain control. Vital Signs 06/01/18 06:25 Temp 98.4 Pulse 73 Resp 16 B/P (MAP) 97/57 (70) Pulse Ox 99 O2 Delivery Room Air Vital signs are stable. Patient is afebrile. Abdomen is benign. The fundus is firm below the umbilicus and nontender. Extremities show no clubbing cyanosis. There is no Homans sign. Assessment and plan day number 1 status post term spontaneous vaginal delivery doing well. Plan is routine convalescence care June 01, 2018 at 1826 Patient without complaint. She is ambulating, voiding, tolerating oral intake well. Patient's been stable through the day. Physical exam is deferred Assessment and plan postoperative day number 1 doing well. Plan is for routine convalescence care with discharge home tomorrow Final Diagnosis 37-5/7 weeks spontaneous vaginal delivery MALIK DEE MD Jun 01, 2018 18:27
[2018-06-01 21:50] VITALS: BP 103/66
[2018-06-02] MEDS: oxyCODONE/APAP 5/325MG (PERCOCET 5) TABLET PO PRN (04:05)
[2018-06-02 04:10] VITALS: BP 102/62
[2018-06-02] MEDS: IBUPROFEN 800 MG (MOTRIN) TAB PO SCH (05:50)
[2018-06-02 09:00] VITALS: BP 106/59
[2018-06-02] MEDS: DOCUSATE SODIUM 100 MG (COLACE) CAP PO SCH (09:01)
--- NOTE | 2018-06-02 11:45 | Postpartum Progress Note ---
Note Note Day # 2 s/p Subjective: Patient is without complaints. Ambulating, voiding. Tolerating a regular diet without nausea or vomiting. Normal lochia. Pain is well controlled with oral pain medications. [] feeding. [] Objective: 06/02/18 06/02/18 04:10 09:00 Temp 97.6 97.3 Pulse 66 67 Resp 18 18 B/P (MAP) 102/62 (75) 106/59 (75) Pulse Ox 99 98 O2 Delivery Room Air Room Air Physical Exam: General - Alert and oriented, no apparent distress Abdomen - Soft, appropriately tender to palpation, non-distended, fundus firm at umbilicus Extremities - no edema, negative Deanna's bilaterally [] Assessment: [] post- day # [], status post [] vaginal delivery. Recovering well, hemodynamically stable [] Plan: Routine care. Encourage breast feeding. Encourage ambulation. Ferrous sulfate supplementation. Plan for discharge [] Vitals - Labs Vital Signs - I&O Vital Signs Date Time Temp Pulse Resp B/P (MAP) Pulse Ox O2 Delivery O2 Flow Rate FiO2 06/02/18 09:00 97.3 67 18 106/59 (75) 98 Room Air 06/02/18 04:10 97.6 66 18 102/62 (75) 99 Room Air 06/01/18 21:50 96.2 78 18 103/66 (78) 98 Room Air 06/01/18 16:18 97.3 77 18 100/61 (74) 99 Room Air 06/01/18 12:22 97.1 66 16 95/55 (68) 99 Room Air LAMONT BROWN DO Jun 02, 2018 11:45
--- NOTE | 2018-06-02 11:50 | NUR ---
Dr. Mart here to see pt. No new orders rec'd.
--- NOTE | 2018-06-02 12:14 | NUR ---
Discharge instructions explained to pt with copy provided to pt along with prescriptions. Pt verbalizes understanding of teachings, denies questions or concerns and signs to verify. No further questions or needs voiced at this time.
--- NOTE | 2018-06-02 13:40 | NUR ---
Pt ambulates off unit to private vehicle with all personal belongings accompanied by RN, S.O. and infant. no s/s of distress noted.
== END 2018-06-02 13:40 | disposition home or self-care (01) | DRG 807 ==
LOC: LDRP 07:05
PROVIDERS: ADMIT Obstetrics & Gynecology; ATTEND Obstetrics & Gynecology
PROC: 10E0XZZ Delivery of Products of Conception, External Approach (ICD-10-PCS; principal; 2018-05-31)
DX: O99.113 Other diseases of the blood and blood-forming organs and certain disorders involving the immune mechanism complicating pregnancy, third trimester (principal); D69.6 Thrombocytopenia, unspecified; O99.333 Smoking (tobacco) complicating pregnancy, third trimester; F17.210 Nicotine dependence, cigarettes, uncomplicated; O99.613 Diseases of the digestive system complicating pregnancy, third trimester; K21.9 Gastro-esophageal reflux disease without esophagitis; Z3A.37 37 weeks gestation of pregnancy; Z37.0 Single live birth
CPT/HCPCS: 36415; 85025; 86850; 86900; 86901

== ENCOUNTER → 2021-07-07 | Outpatient (CLI) | payer MEDICAID ==
[~2021-07-07] MED LIST changes: +FLUC100T10 PO; -FLUC100T6 PO; -OXYC-465 PO; +OXYC-556 PO; +OXYC1TAB87 PO
== END ==
LOC: LABNPT 15:10
PROVIDERS: ATTEND Obstetrics & Gynecology
DX: Z01.419 Encounter for gynecological examination (general) (routine) without abnormal findings (principal); E04.9 Nontoxic goiter, unspecified
CPT/HCPCS: 84443

== ENCOUNTER → 2021-07-28 | Outpatient (CLI) | payer MEDICAID ==
[~2021-07-28] VITALS: Ht 162.5 cm; Wt 56.8 kg
[~2021-07-28] MED LIST changes: +NORG1TAB14 PO
== END ==
LOC: PREOP 05:28
PROVIDERS: ATTEND Obstetrics & Gynecology
DX: Z01.818 Encounter for other preprocedural examination (principal)

== ENCOUNTER 2021-07-31 05:50 | Day surgery (SDC) | payer MEDICAID ==
[2021-07-31] VITALS (8 sets, daily range): BP systolic 91–108; BP diastolic 51–82
[~2021-07-31] VITALS: Ht 162.5 cm; Wt 56.8 kg
[2021-07-31] MEDS ORDERED: MIDAZOLAM 2 MG/2 ML (VERSED) VIAL IV ONE (06:30)
[2021-07-31] MEDS ORDERED: ceFAZolin INJECTION 1,000 MG ONE (06:35)
[2021-07-31 06:39] LABS: EOSINOPHILS # (AUTO) 0.1 10^3/uL (0.0-0.3); EOSINOPHILS % (AUTO) 2 % (0-10); NEUTROPHILS # (AUTO) 2.3 10^3/uL (1.8-7.8)
[2021-07-31 06:41] LABS: BASOPHILS % (AUTO) 1 % (0-10); HEMATOCRIT 34 % (35-52); HEMOGLOBIN 11.6 g/dL (11.5-16.0); LYMPHOCYTES # (AUTO) 2.3 10^3/uL (1.0-4.0); LYMPHOCYTES % (AUTO) 45 % (12-44); MEAN CORPUSCULAR HEMOGLOBIN 31 pg (25-34); MEAN CORPUSCULAR HGB CONC 34 g/dL (32-36); MEAN CORPUSCULAR VOLUME 91 fL (80-99); MEAN PLATELET VOLUME 12.5 fL (9.0-12.2); MONOCYTES # (AUTO) 0.4 10^3/uL (0.0-1.0); MONOCYTES % (AUTO) 8 % (0-12); NEUTROPHILS % (AUTO) 45 % (42-75); PLATELET COUNT 117 10^3/uL (130-400); WHITE BLOOD COUNT 5.1 10^3/uL (4.3-11.0)
[2021-07-31] MEDS ORDERED: ceFAZolin INJECTION 1,000 MG VIAL IV ONE (06:45)
[2021-07-31] MEDS ORDERED: LACTATED RINGERS 1,000 ML IV PRN (06:45)
[2021-07-31 06:52] LABS: SMEAR SCAN COMMENT YES
[2021-07-31] MEDS ORDERED: SEVOFLURANE (ULTANE) 15 ML INHAL SOLN ONE (07:02)
[2021-07-31] MEDS ORDERED: proPOfol 200 MG/20 ML (DIPRIVAN) VIAL IV ONE (07:02)
[2021-07-31] MEDS ORDERED: ONDANSETRON 4 MG/2 ML (SDV) Z0FRAN ONE (07:02)
[2021-07-31] MEDS ORDERED: LIDOCAINE PF 2% 5 ML (XYLOCAINE) VIAL ONE (07:02)
[2021-07-31] MEDS ORDERED: fentaNYL INJ 100 MCG/2 ML AMP ONE (07:02)
[2021-07-31] MEDS ORDERED: MIDAZOLAM 2 MG/2 ML (VERSED) VIAL ONE (07:02)
--- NOTE | 2021-07-31 07:47 | Progress Note-Pre Operative ---
Pre-Operative Progress Note H&P Reviewed The H&P was reviewed, patient examined and no changes noted. Date Seen by Provider: July 31, 2021 Time Seen by Provider: 07:47 Date H&P Reviewed: July 31, 2021 Time H&P Reviewed: 07:47 Pre-Operative Diagnosis: JOVITA-2 MALIK DEE MD July 31, 2021 07:47
--- NOTE | 2021-07-31 07:48 | Progress Note-Post Operative ---
Post-Operative Progess Note Surgeon (s)/Planograph Operator (s) Surgeon MALIK DEE MD Planograph Operator: None Pre-Operative Diagnosis JOVITA-2 Post-Operative Diagnosis Same with pathology pending Procedure & Operative Findings Date of Procedure 07/31/21 Procedure Performed/Findings LEEP procedure Anesthesia Type General Estimated Blood Loss Estimated blood loss (mL): min Specimens/Packing Specimens Removed LEEP specimen from cervix MALIK DEE MD July 31, 2021 07:48
--- NOTE | 2021-07-31 07:51 | Discharge Inst-Surgical ---
Discharge Inst-Surgical Depart Medication/Instructions New, Converted or Re-Newed RX: Other Consults/Follow Up Orders & Referrals Follow Up Appt: Call to make follow up appt. for patient in 2 weeks. Activity: Rest for 24 hours, than as tolerated. May use [id number] Motrin/ibuprofen up to 800 mg every 6 hours as needed cramps or pain Continue on home medication Diet: As tolerated may shower or tub bathe as desired. No driving for 24 hours, no alcoholic beverages for 24 hours, and nothing per vagina (no tampons, douching, or intercoarse) for 2 weeks. Patient to return to the clinic as soon as possible for: Temperature greater than 101F, Severe Pain, Foul discharge from incision or vagina, Excessive Bleeding (more than a period). Activity Activity as Tolerated: No Diet Discharge Diet: No Restrictions MALIK DEE MD July 31, 2021 07:51
[2021-07-31] MEDS ORDERED: oxyCODONE/APAP 5/325MG (PERCOCET 5) TABLET PO PRN (08:00)
[2021-07-31] MEDS ORDERED: MEPERIDINE (DEMEROL) INJ 100 MG/ML IM ONE (08:00)
[2021-07-31] MEDS ORDERED: fentaNYL INJ 100 MCG/2 ML AMP IVP PRN (08:00)
[2021-07-31] MEDS ORDERED: KETOROLAC 30 MG/ML VIAL IVP ONE (08:00)
[2021-07-31] MEDS ORDERED: ONDANSETRON 4 MG/2 ML (SDV) Z0FRAN IVP PRN ×2 (08:00→08:30)
--- NOTE | 2021-07-31 08:17 | Anesthesia-General Post-Op ---
General Patient Condition Mental Status/LOC: Same as Preop Cardiovascular: Satisfactory Nausea/Vomiting: Absent Respiratory: Satisfactory Pain: Controlled Complications: Absent Post Op Complications Complications None Follow Up Care/Instructions Patient Instructions None needed. Anesthesia/Patient Condition Patient Condition Patient is doing well, no complaints, stable vital signs, no apparent adverse anesthesia problems. No complications reported per nursing. DANNI PANCHAL CRNA July 31, 2021 08:17
[2021-07-31] MEDS ORDERED: morphine INJ 10 MG/ML 1ML (SYR OR VIAL) IVP ONE (08:30)
[2021-07-31] MEDS ORDERED: MEPERIDINE (DEMEROL) INJ 50 MG/ML IVP ONE (08:30)
[2021-07-31] MEDS ORDERED: KETOROLAC 30 MG/ML VIAL ONE (08:40)
--- NOTE | 2021-07-31 12:00 | OPERATIVE REPORT ---
DATE OF SERVICE: 07/31/2021 PREOPERATIVE DIAGNOSIS: JOVITA 2. POSTOPERATIVE DIAGNOSIS: JOVITA 2. OPERATIVE PROCEDURE: LEEP. OPERATIVE DESCRIPTION: With the patient in the supine position under satisfactory general anesthesia, she was repositioned in a dorsal lithotomy position in the Jhonny stirrups and prepped and draped in the usual fashion for vaginal surgery. A weighted speculum placed in the posterior fornix of vagina; the cervix was grasped anteriorly with a single tooth tenaculum. The cervix was then saturated with 5% solution of acetic acid. After several minutes, that was evacuated from the vagina. There was an acetowhite lesion at the 12 o'clock position of the cervix and another acetowhite lesion extending from about the 4 to 7 o'clock position across the cervix. Both of these had been biopsied. 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 A LEEP procedure was then performed using 20 mm LEEP electrode. In a single pass, the ectocervix was removed, removing all of the transformation zone and all of the acetowhite epithelium. That tissue was sent to pathology for permanent section. After removing the specimen, the defect was touched with ball electrocautery to effect hemostasis. With hemostasis complete, the tenaculum was removed. There was no bleeding from the puncture sites. Sponge and needle counts were correct. Blood loss was minimal. The patient was now uneventfully awakened from general anesthesia and transferred to the recovery room in stable condition with plans for discharge home PAR. Job ID: [id number] DocumentID: [id number] Dictated Date: 07/31/2021 08:07:56 Occupational Health Coordinator Date: 07/31/2021 12:00:31 Dictated By: MALIK DEE MD
== END 2021-07-31 09:50 ==
LOC: SDC 05:50
PROVIDERS: ATTEND Obstetrics & Gynecology
DX: D06.0 Carcinoma in situ of endocervix (principal); N93.9 Abnormal uterine and vaginal bleeding, unspecified; F17.210 Nicotine dependence, cigarettes, uncomplicated
CPT/HCPCS: 36415; 84703; 85025; 87081; 88307

== ENCOUNTER 2022-03-27 10:37 | Emergency (ER) | payer MEDICAID ==
[~2022-03-27] VITALS: Ht 160 cm; Wt 56.8 kg
[2022-03-27] MEDS ORDERED: ACETAMINOPHEN 500 MG TAB (TYLENOL) PO STA (11:21)
[2022-03-27] MEDS ORDERED: ONDANSETRON 4 MG/2 ML (SDV) Z0FRAN IVP ONE (11:30)
[2022-03-27] MEDS ORDERED: NS IV 1000 ML 1,000 ML IV SCH (11:30)
[2022-03-27 11:34] LABS: BILIRUBIN,URINE NEGATIVE (NEGATIVE); CLARITY,URINE SL CLOUDY; COLOR,URINE YELLOW; GLUCOSE, URINE (UA) NEGATIVE (NEGATIVE); KETONES,URINE NEGATIVE (NEGATIVE); LEUKOCYTE ESTERASE ,URINE NEGATIVE (NEGATIVE); NITRITE,URINE NEGATIVE (NEGATIVE); PROTEIN,URINE NEGATIVE (NEGATIVE)
--- NOTE | 2022-03-27 11:35 | ED GI ---
General Chief Complaint: OB > 20 WEEKS Stated Complaint: 7 WEEKS , NAUSEA Nursing Triage Note: C/O LOWER ABDOMINAL PAIN THAT STARTED LAST NIGHT AND HAS BEEN UNABLE TO RELIEVE PAIN WITH TYLENOL TAKEN AT 1800 ON 03/26/22 OR WARM BATH AND HEATING PAD. PATIENT STATES SHE IS 7 WEEKS PREGANT, SEES LEILA, SPOTTING FOR A LITTLE OVER A WEEK TO WHICH DR DEE IS AWARE AND PATIENT SEEMS UNCONCERNED. PATIENT IS . DENIES URINARY OR BOWEL ISSUES CURRENTLY. Source of Information: Patient Exam Limitations: No Limitations History of Present Illness Date Seen by Provider: Mar 27, 2022 Time Seen by Provider: 11:14 Initial Comments 27-year-old female who is 7w6d IUP, confirmed by outpatient US, presents with bilateral lower abdominal pain that radiates to lower back and hips. Pain started last night, states that she was up all night due to this pain. Took Tylenol yesterday at 6 PM, attempted a warm bath without relief. States she also has had some spotting, brownish/pink in color when wiping. Denies dysuria. Reports vomiting, but states this is unchanged since the beginning of her . States she was told by her OB that she has a right ovarian cyst. Denies fever/chills, denies vaginal discharge. Timing/Duration: 12-24 Hours Location: RLQ, LLQ Radiation: Back, Other (hips) Allergies and Home Medications Allergies Coded Allergies: beet (Unverified Allergy, Unknown, RASH, 04/23/16) FROM UNCODED ALLERGIES Patient Home Medication List Home Medication List Reviewed: Yes Metronidazole (Metronidazole) 500 Mg Tablet, 500 MG PO BID Prescribed by: Renata Maynard on 03/27/22 1313 Norgestimate-Ethinyl Estradiol (Sprintec 28 Day Tablet) 0.25 Mg-35 Mcg Tablet, 1 EACH PO UD, (Reported) Entered as Reported by: MAXIMILIANO MUELLER on 07/28/21 1334 Review of Systems Review of Systems Constitutional: see HPI Past Xsnabdx-Ahkrzb-Erhyuq Hx Patient Social History Tobacco Use?: Yes Tobacco type used: Cigarettes Smoking Status: Current Everyday Smoker Use of E-Cig and/or Vaping dev: No Substance use?: No Alcohol Use?: No Pt feels they are or have been: No Immunizations Up To Date Tetanus Booster (TDap): Unknown PED Vaccines UTD: No Influenza Vaccine Up-to-Date: No; Not Current First/Initial COVID19 Vaccinat: DENIES Seasonal Allergies Seasonal Allergies: Yes Past Medical History Surgery/Hospitalization HX: COLONOSCOPY, TONSILS Surgeries: Yes Tonsillectomy Respiratory: Yes (ASTHMA IN CHILDHOOD ONLY) Asthma Currently Using CPAP: No Currently Using BIPAP: No Cardiac: No Neurological: No Expected Date of Delivery: Nov 07, 2022 Last Menstrual Period: Dec 31, 2021 Reproductive Disorders: No Female Reproductive Disorders: Denies Sexually Transmitted Disease: No HIV/AIDS: No Genitourinary: No Gastrointestinal: No Musculoskeletal: Yes Fractures Endocrine: No HEENT: Yes (GLASSES) Loss of Vision: Denies Hearing Impairment: Denies Cancer: No Psychosocial: Yes Anxiety Integumentary: No Blood Disorders: Yes (ANEMIA WITH ) Adverse Reaction/Blood Tranf: No Family Medical History Asthma G8 SISTER No Family History of: AIDS Abdominal aortic aneurysm Chuck's disease Alcoholism Alzheimer's disease Aphasia Arthritis Cancer of mouth Cardiovascular disease Cataracts Colon cancer Completed stroke Congenital disease Congenital heart disease Coronary thrombosis Cystic fibrosis Deafness or hearing loss Dementia Diabetes mellitus Drug abuse Dysphasia Fibrocystic disease of breast Gastroenteritis Glaucoma Headache disorder Hypercholesterolemia Hypertension Infertility Kidney disease Myocardial infarction Neoplasm Not obtainable due to adoption Osteoporosis Parkinson's disease Prostate cancer Psychosocial problem Respiratory disorder Seizure disorder Severe allergy Thyroid disease Tuberculosis Visual disorder No Pertinent Family Hx Physical Exam Vital Signs Vital Signs - First Documented 03/27/22 10:50 Temp 36.4 Pulse 110 Resp 16 B/P (MAP) 120/59 (79) Pulse Ox 100 O2 Delivery Room Air Capillary Refill : Less Than 3 Seconds Height/Weight/BMI Height: 5'5.00" Weight: 156lbs. 0.0oz. [id number]; 22.00 BMI Method:Stated General Appearance: WD/WN, mild distress Neck: supple, normal inspection Respiratory: lungs clear, normal breath sounds, no respiratory distress, no accessory muscle use Cardiovascular: no edema, no gallop, no JVD, no murmur, tachycardia Gastrointestinal: normal bowel sounds, soft, no organomegaly, no pulsatile mass, tenderness Extremities: normal range of motion, normal inspection Pelvic: normal external exam, discharge; No vaginal bleeding Neurologic/Psychiatric: alert, normal mood/affect, oriented x 3 Skin: normal color, warm/dry Progress/Results/Core Measures Results/Orders Lab Results Laboratory Tests Test 03/27/22 11:21 03/27/22 11:40 03/27/22 12:30 Range/Units Urine Color YELLOW Urine Clarity SL CLOUDY Urine pH 6.0 5-9 Urine Specific [place] >=1.030 1.016-1.022 Urine Protein NEGATIVE NEGATIVE Urine Glucose (UA) NEGATIVE NEGATIVE Urine Ketones NEGATIVE NEGATIVE Urine Nitrite NEGATIVE NEGATIVE Urine Bilirubin NEGATIVE NEGATIVE Urine Urobilinogen 1.0 < = 1.0 MG/DL Urine Leukocyte Esterase NEGATIVE NEGATIVE Urine RBC (Auto) TRACE-I H NEGATIVE Urine RBC 0-2 /HPF Urine WBC RARE /HPF Urine Squamous Epithelial Cells 2-5 /HPF Urine Crystals NONE /LPF Urine Bacteria TRACE /HPF Urine Casts NONE /LPF Urine Mucus LARGE H /LPF Urine Culture Indicated NO White Blood Count 9.2 4.3-11.0 10^3/uL Red Blood Count 3.68 L 3.80-5.11 10^6/uL Hemoglobin 11.4 L 11.5-16.0 g/dL Hematocrit 33 L 35-52 % Mean Corpuscular Volume 91 80-99 fL Mean Corpuscular Hemoglobin 31 25-34 pg Mean Corpuscular Hemoglobin Concent 34 32-36 g/dL Red Cell Distribution Width 12.8 10.0-14.5 % Platelet Count 113 L 130-400 10^3/uL Mean Platelet Volume 12.1 9.0-12.2 fL Immature Granulocyte % (Auto) 0 % Neutrophils (%) (Auto) 86 H 42-75 % Lymphocytes (%) (Auto) 9 L 12-44 % Monocytes (%) (Auto) 5 0-12 % Eosinophils (%) (Auto) 0 0-10 % Basophils (%) (Auto) 0 0-10 % Neutrophils # (Auto) 7.9 H 1.8-7.8 10^3/uL Lymphocytes # (Auto) 0.8 L 1.0-4.0 10^3/uL Monocytes # (Auto) 0.4 0.0-1.0 10^3/uL Eosinophils # (Auto) 0.0 0.0-0.3 10^3/uL Basophils # (Auto) 0.0 0.0-0.1 10^3/uL Immature Granulocyte # (Auto) 0.0 0.0-0.1 10^3/uL Percent Immature Platelet Fraction 11.9 H 0.0-7.6 % Sodium Level 134 L 135-145 MMOL/L Potassium Level 3.4 L 3.6-5.0 MMOL/L Chloride Level 104 98-107 MMOL/L Carbon Dioxide Level 21 21-32 MMOL/L Anion Gap 9 5-14 MMOL/L Blood Urea Nitrogen 9 7-18 MG/DL Creatinine 0.68 0.60-1.30 MG/DL Estimat Glomerular Filtration Rate 122 BUN/Creatinine Ratio 13 Glucose Level 95 70-105 MG/DL Calcium Level 8.6 8.5-10.1 MG/DL Corrected Calcium 8.6 8.5-10.1 MG/DL Total Bilirubin 0.9 0.1-1.0 MG/DL Aspartate Amino Transf (AST/SGOT) 12 5-34 U/L Alanine Aminotransferase (ALT/SGPT) 10 0-55 U/L Alkaline Phosphatase 26 L 40-136 U/L Total Protein 6.5 6.4-8.2 GM/DL Albumin 4.0 3.2-4.5 GM/DL Human Chorionic Gonadotropin, Quant [id number] H <5 MIU/ML Micro Results Microbiology 03/27/22 Wet Prep - Final, Complete My Orders Orders - RENATA MAYNARD APRN Ua Culture If Indicated (03/27/22 11:13) Urine Bedside (03/27/22 11:13) Cbc With Automated Diff (03/27/22 11:21) Hcg,Quantitative (03/27/22 11:21) Ed Iv/Invasive Line Start (03/27/22 11:21) Comprehensive Metabolic Panel (03/27/22 11:21) Ns Iv 1000 Ml (Sodium Chloride 0.9%) (03/27/22 11:30) Ondansetron Injection (Zofran Injectio (03/27/22 11:30) Acetaminophen Tablet (Tylenol Tablet) (03/27/22 11:21) Neisseria Gonorrhea Swab (03/27/22 12:31) Chlamydia Trachomatis Swab (03/27/22 12:31) Wet Prep (03/27/22 12:31) Metronidazole Tablet (Flagyl Tablet) (03/27/22 13:15) Medications Given in ED Current Medications Medications Dose Ordered Sig/Lesly Route Start Time Stop Time Status Last Admin Dose Admin Metronidazole 500 mg ONCE ONCE PO 03/27/22 13:15 03/27/22 13:16 DC 03/27/22 13:16 500 MG Ondansetron HCl 4 mg ONCE ONCE IVP 03/27/22 11:30 03/27/22 11:31 DC 03/27/22 11:40 4 MG Vital Signs/I&O 03/27/22 03/27/22 10:50 13:21 Temp 36.4 36.7 Pulse 110 84 Resp 16 19 B/P (MAP) 120/59 (79) 129/79 Pulse Ox 100 100 O2 Delivery Room Air Room Air Blood Pressure Mean: 79 Progress Progress Note #1: Time: 11:39 Progress Note Patient seen and evaluated, resting in bed, mild distress. Chart review completed, obstetrics and gynecology notes reviewed. Based on exam and symptoms, differential diagnosis includes threatened/spontaneous , ovarian cyst, STIs, bacterial vaginosis, PID, UTI, subchorionic hemorrhage. Work-up initiated for abdominal pain and vaginal bleeding in . Progress Note #2: Time: 12:30 Progress Note Patient updated on lab results thus far. Pelvic exam performed, moderate amount of yellow/brown discharge noted, os closed, no bleeding noted. Progress Note #3: Time: 13:07 Progress Note Clue cells and white blood cells noted on wet prep, results discussed with patient. First dose of Flagyl given here, prescription sent to [facility] for patient. Follow-up instructions and return precautions provided. Departure Impression Primary Impression: Bacterial vaginosis Additional Impression: Qualified Codes: Z3A.01 - Less than 8 weeks gestation of Disposition: HOME, SELF-CARE Condition: Stable Departure-Patient Inst. Decision time for Depature: 13:07 Referrals: TAD ALANIZ DO (PCP/Family) Primary Care Physician Patient Instructions: Bacterial Vaginosis (DC) Add. Discharge Instructions: Take antibiotic as directed, complete full course of antibiotic even if you begin to feel better. Follow-up with OB. Return for severe pain, heavy bleeding greater than 1 pad per hour or large clot s, lightheadedness, shortness of air, high fever, or any other new or concerning symptoms. All discharge instructions reviewed with patient and/or family. Voiced understanding. Scripts Metronidazole (Metronidazole) 500 Mg Tablet 500 MG PO BID for 7 Days, #13 TAB 0 Refills Prov: RENATA MAYNARD APRN 03/27/22 Copy Copies To 1: MALIK DEE MD, BRITTANY R APRN Mar 27, 2022 11:35
[2022-03-27 11:48] LABS: BASOPHILS % (AUTO) 0 % (0-10); EOSINOPHILS % (AUTO) 0 % (0-10); HEMATOCRIT 33 % (35-52); HEMOGLOBIN 11.4 g/dL (11.5-16.0); MEAN CORPUSCULAR HGB CONC 34 g/dL (32-36); MEAN PLATELET VOLUME 12.1 fL (9.0-12.2); MONOCYTES # (AUTO) 0.4 10^3/uL (0.0-1.0); MONOCYTES % (AUTO) 5 % (0-12)
[2022-03-27 11:50] LABS: BACTERIA,URINE TRACE /HPF; RBC,URINE 0-2 /HPF; WBC,URINE RARE /HPF
[2022-03-27 11:50] LABS: LYMPHOCYTES # (AUTO) 0.8 10^3/uL (1.0-4.0); LYMPHOCYTES % (AUTO) 9 % (12-44); MEAN CORPUSCULAR HEMOGLOBIN 31 pg (25-34); MEAN CORPUSCULAR VOLUME 91 fL (80-99); NEUTROPHILS # (AUTO) 7.9 10^3/uL (1.8-7.8); NEUTROPHILS % (AUTO) 86 % (42-75); PLATELET COUNT 113 10^3/uL (130-400); WHITE BLOOD COUNT 9.2 10^3/uL (4.3-11.0)
[2022-03-27 12:03] LABS: POTASSIUM 3.4 MMOL/L (3.6-5.0)
[2022-03-27 12:04] LABS: CALCIUM 8.6 MG/DL (8.5-10.1)
[2022-03-27 12:05] LABS: TOTAL PROTEIN 6.5 GM/DL (6.4-8.2)
[2022-03-27 12:07] LABS: BILIRUBIN,TOTAL 0.9 MG/DL (0.1-1.0)
[2022-03-27 12:09] LABS: CREATININE SERUM 0.68 MG/DL (0.60-1.30)
[2022-03-27] MEDS ORDERED: METR-145 PO (13:13)
[2022-03-27] MEDS ORDERED: metroNIDAZOLE 500 MG (FLAGYL) TAB PO ONE (13:15)
[2022-03-27 13:21] VITALS: BP 129/79
== END 2022-03-27 13:22 | disposition home or self-care (01) ==
LOC: EDUNIT# 10:37 → ER 10:39
DX: O23.591 Infection of other part of genital tract in pregnancy, first trimester (principal); B96.89 Other specified bacterial agents as the cause of diseases classified elsewhere; O99.331 Smoking (tobacco) complicating pregnancy, first trimester; F17.210 Nicotine dependence, cigarettes, uncomplicated; Z3A.01 Less than 8 weeks gestation of pregnancy
CPT/HCPCS: 36415; 80053; 81000; 84702; 84703; 85025; 87210; 87491; 87591; 99284